=== PATIENT | female | born 1930 | race Caucasian/White ===

== ENCOUNTER 2019-02-19 09:08 | Day surgery (SDC) | payer OTHER ==
[~2019-02-19] VITALS: Ht 165.1 cm; Wt 59.0 kg
[~2019-02-19 09:08] MED LIST: ASPIR 8181 MG PO; BIOTIN10 MG PO; COLACE100 MG PO; ELIQUIS2.5 MG PO; FOLIC ACID1 MG PO; MIRALAX17 GM PO; MULTIVITAMINS PO; NEURONTIN 300300 M1 PO; SYNTHROID75 MCG PO; VITAMIN D-32000 UNIT PO; WELLBUTRIN SR150 MG PO
[2019-02-19 10:31] VITALS: BP 130/72
--- NOTE | 2019-02-23 06:13 | O ---
[facility] [place] [address] OPERATIVE REPORT Name: DARIELA COWAN Room #: DEP [facility].#: [id number] Admission: 02/19/19 Attend Phys: Bobby Clifford MD Discharge: 02/19/19 Date of : 34 Report #: [id number] THIS REPORT FOR: //name// CC: SOBIA Clifford DENTAL EQUIPMENT MECHANIC: None. PREOPERATIVE DIAGNOSIS: Bilateral upper lid ptosis with superior visual field defects both eyes. POSTOPERATIVE DIAGNOSIS: Bilateral upper lid ptosis with superior visual field defects both eyes. OPERATION PERFORMED: Bilateral upper lid functional ptosis repair. DENTAL EQUIPMENT MECHANIC: None. ANESTHESIA: Local with IV sedation. COMPLICATIONS: None. INDICATIONS FOR PROCEDURE: This patient has bilateral upper lid ptosis with superior visual field loss both eyes. Visual field testing demonstrates dense superior visual defects. Retesting with the upper lid elevated shows an improvement in visual field loss of over 30% and in excess of 12 degrees. The current procedure is being undertaken in order to improve the patient's visual function. Informed consent was obtained to include but not limited to the risk of loss of vision, bleeding, infection, scarring, failure to improve the problem and need for further surgery, such as adjustment of lid height. DESCRIPTION OF PROCEDURE: The patient was taken to the operating room, where 2% Xylocaine with epinephrine mixed with equal parts of 0.75% Marcaine with Wydase was administered transcutaneously to each upper lid. The patient was then prepped and draped in the usual sterile fashion. An upper lid crease incision was then made bilaterally and the dissection was carried down until the orbital septum was identified. The orbital septum was then cleared and the preaponeurotic fat identified. The levator aponeurosis was then disinserted from the anterior surface of the tarsal plate and dissected free in the avascular Marshall's muscle plane. The aponeurosis was then advanced and reattached to the anterior surface of the tarsal plate with interrupted mattress 6-0 Novafil sutures on each side, adjusting for height and contour. The redundant aponeurosis was then amputated. The incision was then closed with [facility] [address] [place] [address] OPERATIVE REPORT Name: DARIELA COWAN [facility] [id number] Admission: 02/19/19 Attend Phys: Bobby Clifford MD Discharge: 02/19/19 Date of : 34 Report #: [id number] multiple interrupted 6-0 chromic sutures that were used to recreate an upper lid crease. The skin was closed with a running 6-0 plain gut suture. The wound was then cleaned and dressed with ophthalmic antibiotic ointment followed by a Telfa pad. The patient was transported to the recovery area, having tolerated the procedure well with no anesthesia or operative complications being noted. <ELECTRONICALLY SIGNED> By: Bobby Clifford MD 02/23/19 [id number] [id number] Bobby Clifford MD /ross
== END 2019-02-19 12:05 | disposition home or self-care (01) ==
LOC: TBA 09:08 → OR 09:08
DX: H02.403 Unspecified ptosis of bilateral eyelids (principal); H53.462 Homonymous bilateral field defects, left side; H53.461 Homonymous bilateral field defects, right side; I50.9 Heart failure, unspecified; F32.9 Major depressive disorder, single episode, unspecified; Z95.0 Presence of cardiac pacemaker; Z98.890 Other specified postprocedural states; Z96.653 Presence of artificial knee joint, bilateral; Z98.41 Cataract extraction status, right eye; Z98.42 Cataract extraction status, left eye; Z90.710 Acquired absence of both cervix and uterus; Z85.850 Personal history of malignant neoplasm of thyroid; Z85.71 Personal history of Hodgkin lymphoma; Z79.899 Other long term (current) drug therapy; Z88.0 Allergy status to penicillin; Z79.82 Long term (current) use of aspirin; Z79.01 Long term (current) use of anticoagulants
CPT/HCPCS: 50010; 50101; 50386; 50398; 51636; 56528; 56531; 62110; 62850; 70005